=== PATIENT | female | born 1965 | race African-American/Black ===

== ENCOUNTER 2024-01-15 12:26 | Emergency (ER) | payer SELFPAY ==
[~2024-01-15] VITALS: Ht 167.6 cm; Wt 69.0 kg
[2024-01-15 12:33] VITALS: BP 141/78; PULSE 65; RESP 14; TEMP 98; O2SAT 97
[2024-01-15 13:00] LABS: BASOPHILS % 0.4 % (0.0-2.0); EOSINOPHILS % 0.2 % (0.0-5.0); HEMATOCRIT. 39.9 % (36.0-48.0); LYMPHOCYTES % 34.9 % (20.0-50.0); MEAN CORPUSCULAR HEMOGLOBIN 31.9 pg (28.0-32.0); MEAN CORPUSCULAR HGB CONC 32.6 g/dL (31.0-37.0); MEAN CORPUSCULAR VOLUME 97.9 fL (81.0-99.0); MONOCYTES % 6.6 % (2.0-8.0); NEUTROPHILS % 57.9 % (40.0-76.0); PLATELET 317 x1000/uL (130-400); RED BLOOD CELL COUNT 4.08 mill/uL (4.2-5.4); RED CELL DISTRIBUTION WIDTH 13.3 % (11.6-14.6); WHITE BLOOD COUNT 6.3 x1000/uL (4.5-11.0)
[2024-01-15 13:06] LABS: CHLORIDE 109 mEq/L (98-107); POTASSIUM 3.4 mEq/L (3.5-5.1); SODIUM 141 mEq/L (136-145)
[2024-01-15 13:07] LABS: CALCIUM 9.5 mg/dL (8.7-10.4); CARBON DIOXIDE 28 mEq/L (21-32)
[2024-01-15 13:11] LABS: INR 1.1; PROTHROMBIN TIME 11.9 sec (9.6-11.0)
[2024-01-15 13:12] LABS: CREATININE 0.7 mg/dL (0.6-1.0); GLUCOSE 99 mg/dL (70-105); UREA NITROGEN BLOOD 6 mg/dL (9-23)
[2024-01-15 13:14] LABS: TROPONIN I HIGH SENSITIVITY < 4 ng/L (3.0-34)
== END 2024-01-15 14:03 | disposition home or self-care (01) ==
LOC: ER 13:27
DX: R55 Syncope and collapse (principal); F43.9 Reaction to severe stress, unspecified
CPT/HCPCS: 36415; 71045; 80048; 84484; 85025; 93005; 99285